=== PATIENT | female | born 1930 | race Caucasian/White ===

== ENCOUNTER 2018-03-06 01:54 | Inpatient (IN) | payer MEDICARE, OTHER ==
[2018-03-06] MEDS ORDERED: Acetaminophen 325 MG Tab PO ONE (02:06)
--- NOTE | 2018-03-06 02:06 | EDM.PDOC ---
ED HPI GENERAL MEDICAL PROBLEM - General Chief Complaint: General Stated Complaint: IN BY AMBULANCE-FEVER, NOT FEELING WELL Time Seen by Provider: 03/06/18 02:03 Source of Information: Reports: Patient, EMS History Limitations: Reports: No Limitations - History of Present Illness INITIAL COMMENTS - FREE TEXT/NARRATIVE: EMS state pt c/o weak unable get up to bathroom been sick since with vomiting F/C. - Related Data Allergies Allergy/AdvReac Type Severity Reaction Status Date / Time No Known Allergies Allergy Verified 03/06/18 02:51 ED ROS GENERAL - Review of Systems Review Of Systems: ROS reveals no pertinent complaints other than HPI. ED EXAM, GENERAL - Physical Exam Exam: See Below Exam Limited By: No Limitations General Appearance: Alert, WD/WN, Mild Distress, Other (discomfort) Ears: Hearing Grossly Normal Throat/Mouth: Normal Voice, No Airway Compromise Head: Atraumatic Neck: Non-Tender, Full Range of Motion Respiratory/Chest: No Respiratory Distress, No Accessory Muscle Use, Rales, Rhonchi Cardiovascular: Regular Rate, Rhythm GI/Abdominal: Soft, Non-Tender Neurological: Alert, Oriented, Normal Cognition, No Motor/Sensory Deficits Psychiatric: Flat Affect Skin Exam: Warm, Dry, Normal Color Lymphatic: No Adenopathy Course - Vital Signs Last Recorded V/S: Last Vital Signs Temp 38.6 C H 03/06/18 01:59 Pulse 81 03/06/18 01:59 Resp 20 03/06/18 01:59 BP 151/69 H 03/06/18 01:59 Pulse Ox 95 03/06/18 01:59 - Orders/Labs/Meds Orders: Active Orders 24 hr Category Date Time Status EKG 12 Lead [EKG Documentation Completion] [RC] URGENT Care 03/06/18 02:09 Active Chest 1V Frontal [CR] Urgent Exams 03/06/18 02:04 Taken CULTURE BLOOD [BC] Stat Lab 03/06/18 02:05 Received Labs: Laboratory Tests 03/06/18 03/06/18 03/06/18 Range/Units 02:05 02:05 02:05 WBC 12.4 H (5.0-10.0) 10^3/uL RBC 4.66 (4.2-5.4) 10^6/uL Hgb 13.3 (12.0-16.0) g/dL Hct 39.2 (37.0-47.0) % MCV 84.1 (80-100) fL MCH 28.5 (27.0-34.0) pg MCHC 33.9 (33.0-35.0) g/dL Plt Count 204 (150-450) 10^3/uL Neut % (Auto) 80.0 H (42.2-75.2) % Lymph % (Auto) 12.5 L (20.5-50.1) % Edmunds % (Auto) 7.4 (2-8) % Eos % (Auto) 0.1 L (1.0-3.0) % Baso % (Auto) 0.0 (0.0-1.0) % Add Manual Diff Yes Neutrophils % (Manual) 84 H (42-75) % Lymphocytes % (Manual) 10 L (20-50) % Monocytes % (Manual) 6 (2-8) % Sodium 124 L (135-145) mmol/L Potassium 3.9 (3.6-5.0) mmol/L Chloride 91 L (101-111) mmol/L Carbon Dioxide 23.0 (21.0-31.0) mmol/L Anion Gap 13.9 BUN 21 H (7-18) mg/dL Creatinine 1.0 (0.6-1.3) mg/dL Est Cr Clr Drug Dosing 37.10 mL/min Estimated GFR (MDRD) 52 BUN/Creatinine Ratio 21.00 Glucose 162 H (74-105) mg/dL Lactic Acid 1.3 (0.5-2.2) mmol/L Calcium 8.5 (8.4-10.2) mg/dl Total Bilirubin 1.0 (0.2-1.0) mg/dL AST 28 (10-42) IU/L ALT 21 (10-60) IU/L Alkaline Phosphatase 56 (42-121) IU/L Total Protein 6.9 (6.7-8.2) g/dl Albumin 3.6 (3.2-5.5) g/dl Globulin 3.3 Albumin/Globulin Ratio 1.09 Meds: Medications Discontinued Medications Generic Name Dose Route Start Last Admin Trade Name Freq PRN Reason Stop Dose Admin Acetaminophen 325 mg 03/06/18 02:06 03/06/18 02:14 Tylenol PO 03/06/18 02:07 325 mg NOW ONE Administration - Re-Assessments/Exams Free Text/Narrative Re-Assessment/Exam: 03/06/18 02:[address] Akers who kindly admitted pt. Departure - Departure Time of Disposition: 02:58 Disposition: Admitted As Inpatient 66 Condition: Fair Clinical Impression: Pneumonia, Hyponatremia - Discharge Information Forms: ED Department Discharge - My Orders Last 24 Hours: My Active Orders 03/06/18 02:04 Chest 1V Frontal [CR] Urgent 03/06/18 02:05 CULTURE BLOOD [BC] Stat 03/06/18 02:09 EKG 12 Lead [EKG Documentation Completion] [RC] URGENT - Assessment/Plan Last 24 Hours: My Active Orders 03/06/18 02:04 Chest 1V Frontal [CR] Urgent 03/06/18 02:05 CULTURE BLOOD [BC] Stat 03/06/18 02:09 EKG 12 Lead [EKG Documentation Completion] [RC] URGENT
[2018-03-06 02:38] LABS: ANION GAP 13.9
[2018-03-06] MEDS ORDERED: Acetaminophen/oxyCODONE 325-5 MG Tab PO PRN (03:40)
[2018-03-06] MEDS ORDERED: Azithromycin 500 MG in Sodium Chloride 0.9% 250 ML IV SCH (04:00)
--- NOTE | 2018-03-06 04:04 | HP ---
CHIEF COMPLAINT: Fever and generalized weakness. HISTORY OF PRESENT ILLNESS: The patient is an 87-year-old lady, who was brought in by ambulance to the emergency room because the patient has not been feeling well and was weak and unable to get up. The patient has been sick for the last 2 to 3 days, had some vomiting and fever and chills. In the emergency room, the patient was evaluated and the patient was noted to be dehydrated and also with pneumonia and with also hyponatremia and hypochloremia and because of the above and generalized weakness, the patient was then admitted for further evaluation and management. PAST MEDICAL HISTORY: Remarkable for hypertension. Otherwise unremarkable. HOME MEDICATIONS: 1. Atenolol 25 mg daily. 2. Aspirin 81 mg daily. REVIEW OF SYSTEMS: The patient denies any diarrhea, dysuria, chest pain, orthopnea, or PND. The rest of the review of systems is negative. SOCIAL HISTORY: The patient is . Lives in the [facility]. Nonsmoker and nonalcoholic drinker. PHYSICAL EXAMINATION: General: The patient is alert and oriented, not in any acute distress. Vital Signs: Blood pressure is 151/69, pulse of 81, respirations of 20, temperature of 101.4. HEENT: Skin turgor is slightly diminished. There are pink palpebral conjunctivae. Sclerae anicteric. No JVD. No lymphadenopathy. Heart: Regular rate and rhythm. Normal S1 and S2. No gallops. No rubs. Lungs: Have faint crackles in both lower lung fatima. No significant wheezing. Abdomen: Moderately obese, but soft and nontender. Bowel sounds positive. Extremities: Negative for any calf tenderness or any significant pedal edema. LABORATORY DATA: Lab workup: CBC; WBC is 12.4, hemoglobin is 13.3, hematocrit is 39.2, platelets 204, and neutrophils is 84%. Comprehensive panel; sodium is 124, chloride of 91, BUN of 21, glucose is 162. The rest of the panel unremarkable. Chest x-ray, there is some faint opacity noted on the right lower lung field, this is my reading. ADMITTING DIAGNOSES: 1. Systemic inflammatory response syndrome. 2. Pneumonia. 3. Generalized weakness. 4. Hyponatremia. 5. Hypochloremia. 6. Hypertension. TREATMENT PLAN: The patient is going to be admitted to General Medicine floor. She will be empirically started on IV antibiotics and IV fluids, and rest of the management as necessary. The patient is a full code. [facility] /[id number]
[2018-03-06] MEDS ORDERED: Azithromycin 500 MG in Sodium Chloride 0.9% 250 ML IV ONE (04:30)
[2018-03-06] MEDS: Sodium Chloride 0.9% 1,000 ML IV SCH ×3 (04:43→23:56)
[2018-03-06] MEDS: Atenolol 25 MG Tab PO SCH (08:12)
[2018-03-06] MEDS: Enoxaparin 40 MG/0.4 ML Syringe SUBCUT SCH (08:13)
[2018-03-06] MEDS: Aspirin 81 MG Tab.Chew PO SCH (08:13)
[2018-03-06 10:25] LABS: ANION GAP 13.6; CHLORIDE,CL 94 mmol/L (101-111); SODIUM,NA 125 mmol/L (135-145)
--- NOTE | 2018-03-06 10:47 | PN ---
DATE: 03/06/2018 SUBJECTIVE: The patient this morning is feeling slightly better and appetite is slowly picking up, but she is still feeling weak, but she denies any chest pain, shortness of breath, abdominal pain, or any other complaints. OBJECTIVE: Vital Signs: Blood pressure is 124/42, pulse of 72, respirations 20, and saturation is 95% on room air. Heart: Regular rate and rhythm. No gallops. No rubs. Lungs: Equal bilaterally. There are some faint crackles on the right lung base, but no significant wheezing. Breath sounds equal. Abdomen: Moderately obese. Otherwise soft, nontender. Bowel sounds positive. Extremities: Negative for any significant pedal edema. No calf tenderness. MEDICATIONS: Reviewed. PLAN: We will continue with her present management and continue with IV fluids and IV antibiotics. We will recheck CBC and basic metabolic panel in a.m. [facility] /[id number]
[2018-03-06] MEDS: Ondansetron 4 MG Tab.DIS PO PRN (12:14)
[2018-03-06] MEDS: Acetaminophen 325 MG Tab PO PRN ×2 (15:35→20:48)
[2018-03-06] MEDS ORDERED: Ibuprofen 200 MG Tab PO PRN (18:07)
[2018-03-06] MEDS: Azithromycin 500 MG in Sodium Chloride 0.9% 250 ML IV SCH (20:48)
[2018-03-07 07:10] LABS: ANION GAP 11.8; CHLORIDE,CL 97 mmol/L (101-111); SODIUM,NA 127 mmol/L (135-145)
[2018-03-07] MEDS: Sodium Chloride 0.9% 1,000 ML IV SCH ×2 (08:29→17:38)
[2018-03-07] MEDS: Aspirin 81 MG Tab.Chew PO SCH (08:50)
[2018-03-07] MEDS: Atenolol 25 MG Tab PO SCH (08:51)
[2018-03-07] MEDS: Enoxaparin 40 MG/0.4 ML Syringe SUBCUT SCH (08:51)
[2018-03-07] MEDS ORDERED: Iopamidol 612 MG/ML 50 ML SDV IVPUSH ONE (09:34)
[2018-03-07] MEDS: Acetaminophen 325 MG Tab PO PRN ×2 (12:09→20:24)
--- NOTE | 2018-03-07 14:48 | CT ---
CLINICAL HISTORY: 87-year-old 170 pound hypertensive female with left-sided weakness. No previous hea d exam (CT or MRI) at this institution. No known trauma. SCAN TECHNIQUE: Volume acquisition of data from the head and brain obtained initially without and sub sequently during/after the intravenous infusion (50 cc nonionic Isovue contrast) while the patient wa s lying supine on the Siemens multislice scanner [place], [place]. All data archived in the PACS system for storage, reformatting and study. INTERPRETATION: Abnormal. 1. Multiple scattered areas of decreased attenuation (ischemic infarcts) involving the periventricul ar white matter of both cerebral hemispheres. 2. Mirror-image normal ventricular system, i.e., no hydrocephalus. Physiologic midline pineal and sym metric choroid plexus Ca++. 3. Solitary 2 cm diameter intracranial mass lesion, right of midline, that arises from the falx with characteristic enhancement of meningioma, i.e., florid initial arterial phase enhancement with exuber ant delayed tumor "blush". 4. Age-appropriate atrophy. No extracerebral/intracranial epidural or subdural hematoma. 5. Uniformly thick bony calvarium and symmetric clear pneumatization of the mastoid/paranasal sinuses . 6. No sign of acute intracerebral/intraventricular/subarachnoid bleed. 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
[2018-03-07] MEDS: Docusate Sodium 100 MG Cap PO SCH (18:53)
[2018-03-07] MEDS: Azithromycin 500 MG in Sodium Chloride 0.9% 250 ML IV SCH (20:57)
[2018-03-08] MEDS: Sodium Chloride 0.9% 1,000 ML IV SCH ×2 (02:41→12:05)
[2018-03-08] MEDS: Acetaminophen 325 MG Tab PO PRN ×2 (04:06→16:59)
[2018-03-08 07:01] LABS: ANION GAP 9.3; CHLORIDE,CL 100 mmol/L (101-111); SODIUM,NA 126 mmol/L (135-145)
[2018-03-08] MEDS: Atenolol 25 MG Tab PO SCH (08:22)
[2018-03-08] MEDS: Docusate Sodium 100 MG Cap PO SCH (08:22)
[2018-03-08] MEDS: Enoxaparin 40 MG/0.4 ML Syringe SUBCUT SCH (08:24)
[2018-03-08] MEDS: Aspirin 81 MG Tab.Chew PO SCH (08:24)
[2018-03-08] MEDS: Sodium Chloride 0.9% 10 ML Syringe FLUSH SCH (08:25)
--- NOTE | 2018-03-08 09:01 | PN ---
DATE: 03/07/2018 SUBJECTIVE: Ms. Diego is an 87-year-old female seen during her continued hospital stay; admitted because of weakness; was noted to have hyponatremia, leukocytosis, and fever. The patient on her subsequent day continues to have episodes of fever despite started on IV azithromycin and ceftriaxone. Her sodium has improved. It was later on reported to the staff that she has been having some left-sided weakness for 1 week. She is getting a CAT scan today. PHYSICAL EXAMINATION: Vital Signs: Temperature 101.3, blood pressure is 135/50, heart rate of 73 beats per minute, respirations 20 breaths per minute, and oxygen saturation 94%. General Appearance: Sleeping but arousable. Chest: Symmetric chest expansion. Lungs: Bilateral air entry. Cardiovascular System: Regular rate and rhythm. Abdomen: Soft and nontender. ASSESSMENT AND PLAN: Await CAT scan results. Continue with Tylenol and ibuprofen for episodes of fever. We will continue to follow WBC. Microbiologic studies so far is nonrevealing. We will continue with current IV antibiotics. Once the patient is better, we will have her work with Physical Therapy. PROGNOSIS: Guarded. [facility] /[id number]
--- NOTE | 2018-03-08 09:34 | PN ---
DATE: 03/07/2018 SUBJECTIVE: The patient was seen on her subsequent hospital stay. CAT scan showed meningioma. doesn't want her to know for now until she gets stronger. Patient was able to work with physical therapy today. Feels tired all the time, Appetite still not the best, Ensure was added yesterday and reports was she was able to finish this. PHYSICAL EXAMINATION: Vital Signs: Blood pressure 135/50, heart rate of 73 beats per minute, temperature 101.3, oxygen 94%. General Appearance: Awake. Chest: Symmetric chest expansion. Lungs: Bilateral air entry. Cardiovascular: Regular rate and rhythm. Abdomen: Soft, nontender. Extremities: No edema. Good pulses. neUrologic: Drowsy but arousable and answers questions appropriately ASSESSMENT AND PLAN: Physical therapy and all the patient will therapy will continue to work with her. Her temperatures are starting to trend down now. She will continue with her IV antibiotics. And her leukocytosis has improved. She will also continue with her incentive spirometry. For the hyponatremia, we will start doing fluid restriction, normal saline cutdown to 75 mL per hour and repeat BMP. Hypokalemia, replace and recheck potassium. Anemia, no signs of bleeding. Likely dilutional. ADDENDUM: patient continues to spike fever later today. plan is to switch antibiotics and do CT scan chest, abdomen and pelvis. Daughter Luann updated with plan as well. [facility] /[id number] MTDD
[2018-03-08] MEDS ORDERED: Potassium Chloride 10 MEQ Tab.ER PO ONE (17:28)
[2018-03-08] MEDS ORDERED: Piperacillin/Tazobactam 4.5 GM in Sodium Chloride 0.9% 50 ML IV SCH ×2 (19:00→20:02)
[2018-03-08] MEDS ORDERED: Piperacillin/Tazobactam 4.5 GM in Sodium Chloride 0.9% 100 ML IV SCH ×4 (20:00)
[2018-03-08] MEDS: Piperacillin/Tazobactam 4.5 GM in Sodium Chloride 0.9% 100 ML IV SCH (20:39)
[2018-03-08] MEDS: Sodium Chloride 1 GM Tab PO SCH (20:51)
[2018-03-09] MEDS: Sodium Chloride 0.9% 1,000 ML IV SCH (01:42)
[2018-03-09] MEDS: Piperacillin/Tazobactam 4.5 GM in Sodium Chloride 0.9% 100 ML IV SCH ×6 (02:18→22:41)
[2018-03-09 07:11] LABS: CHLORIDE,CL 99 mmol/L (101-111); SODIUM,NA 126 mmol/L (135-145)
[2018-03-09] MEDS ORDERED: Iopamidol 612 MG/ML 100 ML Bottle IVPUSH ONE (08:37)
--- NOTE | 2018-03-09 11:24 | CT ---
CLINICAL HISTORY: 87-year-old 171 pound hypertensive female with fever of unknown origin (FUO). SCAN TECHNIQUE: Volume acquisition of data from the chest, abdomen and pelvis obtained without oral c ontrast but during/after the intravenous infusion 100 cc nonionic Isovue contrast (3 cc/s via injecto r) while the patient was lying supine on the Siemens multislice scanner [place], [place]. All data archived in the PAC system for storage, reformatting axial/sagittal/lisa nal planes and study. Respiratory motion artifact present. INTERPRETATION: Abnormal. 1. Borderline cardiomegaly and although no cephalization of flow or signs of alveolar edema there are bibasilar dependent pleural effusions (R > L) with underlying lower lobe atelectasis or infiltrates. 2. Abnormally thickened wall of the gallbladder suggesting inflammation but no pericystic fluid or ga llstones (chronic cholecystitis). 3. No pericardial effusion, lung mass, hilar/mediastinal lymphadenopathy or other focal lobar consoli dation. 4. Solitary tiny 7 mm diameter cyst laterally right lobe of the liver and bilateral perihilar renal c ysts. No abnormal dilatation intrahepatic biliary ducts or inflammatory changes cortex of either kidn eys. No nephrolithiasis or obstructive uropathy. Indwelling bladder catheter. 5. Normal caliber aortoiliac vessels. No aneurysm or dissection. Chronic hypertrophic arthritic kaplan es spine. No abscess, fracture or dislocation. No pathologic skeletal lesion. 6. Stomach, spleen, pancreas and adrenal glands unremarkable. Diverticula rectosigmoid colon without associated inflammation. 7. No sign of pelvic or abdominal mass lesion, mesenteric/retroperitoneal lymphadenopathy, mechanical bowel obstruction, ascites or free intraperitoneal air. CONCLUSION: Bibasilar pleural effusions with underlying lower lobe atelectasis/infiltrates. Chronic c holecystitis. Diverticulosis. Hepatic and renal cysts. Usual signs of senescence but no sign of acute peritonitis.
[2018-03-09] MEDS: Aspirin 81 MG Tab.Chew PO SCH (11:34)
[2018-03-09] MEDS: Atenolol 25 MG Tab PO SCH (11:34)
[2018-03-09] MEDS: Enoxaparin 40 MG/0.4 ML Syringe SUBCUT SCH (11:35)
[2018-03-09] MEDS: Docusate Sodium 100 MG Cap PO SCH (11:35)
[2018-03-09] MEDS: Sodium Chloride 0.9% 10 ML Syringe FLUSH SCH (11:36)
[2018-03-09] MEDS: Sodium Chloride 1 GM Tab PO SCH (11:42)
--- NOTE | 2018-03-09 12:08 | PCM.PN ---
- General Info Date of Service: 03/09/18 Functional Status: Reports: Other (history is limited because of the patient's level of orientation.) - Review of Systems General: Reports: No Symptoms, Fever, Weakness, Fatigue Pulmonary: Reports: Shortness of Breath - Patient Data Vitals - Most Recent: Last Vital Signs Temp 37.4 C 03/09/18 11:24 Pulse 70 03/09/18 11:34 Resp 20 03/09/18 11:24 BP 130/77 03/09/18 11:34 Pulse Ox 96 03/09/18 11:24 Weight - Most Recent: 77.927 kg I&O - Last 24 Hours: Intake & Output 03/08/18 03/09/18 03/09/18 22:59 06:59 14:59 Intake Total 200 1437 Output Total 1450 Balance 200 -13 Lab Results Last 24 Hours: Laboratory Results - last 24 hr 03/09/18 03/09/18 03/09/18 Range/Units 06:15 06:15 06:15 WBC 9.9 (5.0-10.0) 10^3/uL RBC 3.74 L (4.2-5.4) 10^6/uL Hgb 10.8 L (12.0-16.0) g/dL Hct 31.6 L (37.0-47.0) % MCV 84.5 (80-100) fL MCH 28.9 (27.0-34.0) pg MCHC 34.2 (33.0-35.0) g/dL Plt Count 143 L (150-450) 10^3/uL Sodium 126 L (135-145) mmol/L Potassium 3.0 L (3.6-5.0) mmol/L Chloride 99 L (101-111) mmol/L Carbon Dioxide 21.0 (21.0-31.0) mmol/L Anion Gap 9.0 BUN 8 (7-18) mg/dL Creatinine 0.6 (0.6-1.3) mg/dL Est Cr Clr Drug Dosing 61.84 mL/min Estimated GFR (MDRD) > 60 Glucose 101 (74-105) mg/dL Calcium 7.4 L (8.4-10.2) mg/dl B-Natriuretic Peptide 640 H (0-100) pg/ml Isai Results Last 24 Hours: Microbiology 03/06/18 02:05 Aerobic Blood Culture - Preliminary Blood NO GROWTH AFTER 3 DAYS Anaerobic Blood Culture - Preliminary NO GROWTH AFTER 3 DAYS Med Orders - Current: Current Medications Acetaminophen (Tylenol) 650 mg PO Q4H PRN PRN Reason: Pain (Mild 1-3)/fever Last Admin: 03/08/18 16:59 Dose: 650 mg Aspirin (Aspirin) 81 mg PO DAILY [facility] Last Admin: 03/09/18 11:34 Dose: 81 mg Atenolol (Tenormin) 25 mg PO DAILY [facility] Last Admin: 03/09/18 11:34 Dose: 25 mg Docusate Sodium (Colace) 100 mg PO DAILY [facility] Last Admin: 03/09/18 11:35 Dose: Not Given Enoxaparin Sodium (Lovenox) 40 mg SUBCUT DAILY [facility] Last Admin: 03/09/18 11:35 Dose: 40 mg Sodium Chloride (Normal Saline) 1,000 mls @ 75 mls/hr IV ASDIRECTED [facility] Last Admin: 03/09/18 01:42 Dose: 75 mls/hr Piperacillin Sod/Tazobactam (Sod 4.5 gm/ Sodium Chloride) 100 mls @ 100 mls/hr IV Q6H [facility] Last Admin: 03/09/18 08:53 Dose: 100 mls/hr Ibuprofen (Motrin) 200 mg PO TID PRN PRN Reason: Pain/Fever Last Admin: 03/07/18 01:23 Dose: 200 mg Ondansetron HCl (Zofran Odt) 4 mg PO Q4H PRN PRN Reason: nausea, able to take PO Last Admin: 03/06/18 12:14 Dose: 4 mg Oxycodone/Acetaminophen (Percocet 325-5 Mg) 1 tab PO Q4H PRN PRN Reason: Pain (moderate 4-6) Sodium Chloride (Saline Flush) 10 ml FLUSH ASDIRECTED PRN PRN Reason: Keep Vein Open Sodium Chloride (Saline Flush) 10 ml FLUSH DAILY [facility] Last Admin: 03/09/18 11:36 Dose: Not Given Sodium Chloride (Sodium Chloride) 1 gm PO DAILY [facility] Last Admin: 03/09/18 11:42 Dose: 1 gm Discontinued Medications Acetaminophen (Tylenol) 325 mg PO NOW ONE Stop: 03/06/18 02:07 Last Admin: 03/06/18 02:14 Dose: 325 mg Ceftriaxone Sodium 1,000 mg/ (Sodium Chloride) 100 mls @ 200 mls/hr IV Q24H [facility] Last Admin: 03/08/18 04:00 Dose: 200 mls/hr Azithromycin 500 mg/ Sodium (Chloride) 250 mls @ 250 mls/hr IV ONETIME ONE Stop: 03/06/18 05:29 Last Admin: 03/06/18 04:43 Dose: 250 mls/hr Azithromycin 500 mg/ Sodium (Chloride) 250 mls @ 250 mls/hr IV Q24H [facility] Last Admin: 03/07/18 20:57 Dose: 250 mls/hr Piperacillin Sod/Tazobactam (Sod 4.5 gm/ Sodium Chloride) 50 mls @ 100 mls/hr IV Q6H [facility] Last Admin: 03/08/18 20:30 Dose: Not Given Piperacillin Sod/Tazobactam (Sod 4.5 gm/ Sodium Chloride) 100 mls @ 200 mls/hr IV Q6H [facility] Piperacillin Sod/Tazobactam (Sod 4.5 gm/ Sodium Chloride) 100 mls @ 200 mls/hr IV Q6H [facility] Last Admin: 03/08/18 20:31 Dose: Not Given Piperacillin Sod/Tazobactam (Sod 4.5 gm/ Sodium Chloride) 50 mls @ 100 mls/hr IV Q6H [facility] Last Admin: 03/08/18 20:31 Dose: Not Given Piperacillin Sod/Tazobactam (Sod 4.5 gm/ Sodium Chloride) 100 mls @ 100 mls/hr IV Q6H [facility] Last Admin: 03/09/18 10:49 Dose: Not Given Iopamidol (Isovue-300 (61%)) 50 ml IVPUSH ONETIME ONE Stop: 03/07/18 09:35 Last Admin: 03/07/18 09:43 Dose: 50 ml Iopamidol (Isovue-300 (61%)) 100 ml IVPUSH ONETIME ONE Stop: 03/09/18 08:38 Last Admin: 03/09/18 09:41 Dose: 100 ml Potassium Chloride (Klor-Con 10) 20 meq PO ONETIME ONE Stop: 03/08/18 17:29 Last Admin: 03/08/18 17:42 Dose: 20 meq - Exam General: Other (disoriented. Confused) Neck: Supple Lungs: Decreased Breath Sounds GI/Abdominal Exam: Normal Bowel Sounds Extremities: Non-Tender Psy/Mental Status: Depressed - Problem List Review Problem List Initiated/Reviewed/Updated: Yes - Plan Plan:: the patient is an 87-year-old female with medical history of hypertension was admitted 5 the emergency room with complaint of generalized weakness and inability to get up. She hasn't intermittent fever chills I will did have some vomiting. She was thought to be dehydrated and also to have pneumonia.she was noted to be hyponatremic. Assessment/plan #. Hyponatremia I suspect that the patient is fluid overloaded at this point. I send sample for BNP and he came back elevated at more than 600. CT scan of the chest was obtained this morning and it showed bilateral pleural effusion Patient has been on intravenous fluid. This will be stopped Discontinue intravenous fluid Start patient on intravenous Lasix 20 mg every 12 hours Obtain repeat basic metabolic panel to monitor serum sodium level #. Possible pneumonia CT scan demonstrated possible bilateral lower lobe infiltrate Patient did have fever initially and also had elevated white cell count. Has been on intravenous antibiotics #. Possible chronic cholecystitis CT scan suggested chronic cholecystitis However patient is not having pain at this point. I would treat this empirically with intravenous antibiotics. The family is not keen on proceeding with surgery at this point #. Possible sepsis At presentation the patient appeared to be septic with elevated white cell count and fever. This could be from pneumonia. Could also be from cholecystitis #. Probable meningioma CT scan of the head showed a 2 cm intracranial mass likely due to meningioma. This is likely responsible for the patient's symptoms #. Acute encephalopathy Probably multifactorial including infection and hyponatremia #. Hypertension blood pressure has been mostly within acceptable limits
[2018-03-09] MEDS: Furosemide 20 MG/2 ML VIAL IVPUSH SCH (14:22)
[2018-03-09] MEDS ORDERED: Carboxymethylcellulose Sodium 1% Ophth Gel 0.4 ML UD EYEBOTH PRN (16:05)
[2018-03-09] MEDS: Acetaminophen 325 MG Tab PO PRN (22:41)
[2018-03-10] MEDS: Piperacillin/Tazobactam 4.5 GM in Sodium Chloride 0.9% 100 ML IV SCH ×4 (03:27→17:20)
[2018-03-10 07:11] LABS: ANION GAP 8.7; CHLORIDE,CL 98 mmol/L (101-111); SODIUM,NA 129 mmol/L (135-145)
[2018-03-10] MEDS: Atenolol 25 MG Tab PO SCH (08:53)
[2018-03-10] MEDS: Sodium Chloride 1 GM Tab PO SCH ×3 (08:53→20:22)
[2018-03-10] MEDS: Aspirin 81 MG Tab.Chew PO SCH (08:53)
[2018-03-10] MEDS: Furosemide 20 MG/2 ML VIAL IVPUSH SCH ×2 (08:58→13:43)
[2018-03-10] MEDS: Enoxaparin 40 MG/0.4 ML Syringe SUBCUT SCH (08:58)
[2018-03-10] MEDS: Docusate Sodium 100 MG Cap PO SCH (11:30)
[2018-03-10] MEDS: Sodium Chloride 0.9% 10 ML Syringe FLUSH SCH (11:30)
[2018-03-10] MEDS: Potassium Chloride 20 MEQ in Premix Bag 1 BAG IV SCH ×2 (11:39→13:40)
--- NOTE | 2018-03-10 11:42 | PCM.PN ---
- General Info Date of Service: 03/10/18 Admission Dx/Problem (Free Text): Generalized weakness Subjective Update: Seen on rounds. Patient AAO x 3. Following commands. Worried about her weakness and wants to know when she will feel better. She si coping with therapy. Denies any new complaints. LAb review; Na today 129>>126. Phos 2.3, K 2.7. Functional Status: Reports: Pain Controlled - Review of Systems General: Reports: No Symptoms HEENT: Reports: No Symptoms Pulmonary: Reports: No Symptoms Cardiovascular: Reports: No Symptoms Gastrointestinal: Reports: No Symptoms, Decreased Appetite Genitourinary: Reports: No Symptoms Musculoskeletal: Reports: Other (general malaise) Skin: Reports: No Symptoms Neurological: Reports: Difficulty Walking, Weakness, Other (instability) Psychiatric: Reports: No Symptoms - Patient Data Vitals - Most Recent: Last Vital Signs Temp 97.8 F 03/10/18 08:20 Pulse 68 03/10/18 08:53 Resp 20 03/10/18 08:20 BP 145/55 H 03/10/18 08:53 Pulse Ox 96 03/10/18 08:20 Weight - Most Recent: 171 lb 12.8 oz I&O - Last 24 Hours: Intake & Output 03/09/18 03/10/18 03/10/18 22:59 06:59 14:59 Intake Total 1740 Output Total 1300 1400 Balance 440 -1400 Lab Results Last 24 Hours: Laboratory Results - last 24 hr 03/10/18 03/10/18 Range/Units 06:15 06:15 Sodium 129 L (135-145) mmol/L Potassium 2.7 L (3.6-5.0) mmol/L Chloride 98 L (101-111) mmol/L Carbon Dioxide 25.0 (21.0-31.0) mmol/L Anion Gap 8.7 BUN 7 (7-18) mg/dL Creatinine 0.7 (0.6-1.3) mg/dL Est Cr Clr Drug Dosing 53.01 mL/min Estimated GFR (MDRD) > 60 Glucose 102 (74-105) mg/dL Calcium 7.6 L (8.4-10.2) mg/dl Phosphorus 2.3 L (2.5-4.6) mg/dL Magnesium 1.8 (1.8-2.5) mg/dL Isai Results Last 24 Hours: Microbiology 03/06/18 02:05 Aerobic Blood Culture - Preliminary Blood NO GROWTH AFTER 4 DAYS Anaerobic Blood Culture - Preliminary NO GROWTH AFTER 4 DAYS Med Orders - Current: Current Medications Acetaminophen (Tylenol) 650 mg PO Q4H PRN PRN Reason: Pain (Mild 1-3)/fever Last Admin: 03/09/18 22:41 Dose: 650 mg Artificial Tears (Refresh Celluvisc) 0 each EYEBOTH ASDIRECTED PRN PRN Reason: Dry Eyes Aspirin (Aspirin) 81 mg PO DAILY [facility] Last Admin: 03/10/18 08:53 Dose: 81 mg Atenolol (Tenormin) 25 mg PO DAILY [facility] Last Admin: 03/10/18 08:53 Dose: 25 mg Docusate Sodium (Colace) 100 mg PO DAILY [facility] Last Admin: 03/10/18 11:30 Dose: Not Given Enoxaparin Sodium (Lovenox) 40 mg SUBCUT DAILY [facility] Last Admin: 03/10/18 08:58 Dose: 40 mg Furosemide (Lasix) 20 mg IVPUSH BIDDIURETIC [facility] Last Admin: 03/10/18 08:58 Dose: 20 mg Piperacillin Sod/Tazobactam (Sod 4.5 gm/ Sodium Chloride) 100 mls @ 100 mls/hr IV Q6H [facility] Last Admin: 03/10/18 08:58 Dose: 100 mls/hr Potassium Chloride 20 meq/ (Premix) 100 mls @ 50 mls/hr IV Q2H [facility] Stop: 03/10/18 13:59 Ibuprofen (Motrin) 200 mg PO TID PRN PRN Reason: Pain/Fever Last Admin: 03/07/18 01:23 Dose: 200 mg Ondansetron HCl (Zofran Odt) 4 mg PO Q4H PRN PRN Reason: nausea, able to take PO Last Admin: 03/06/18 12:14 Dose: 4 mg Oxycodone/Acetaminophen (Percocet 325-5 Mg) 1 tab PO Q4H PRN PRN Reason: Pain (moderate 4-6) Sodium Chloride (Saline Flush) 10 ml FLUSH ASDIRECTED PRN PRN Reason: Keep Vein Open Sodium Chloride (Saline Flush) 10 ml FLUSH DAILY [facility] Last Admin: 03/10/18 11:30 Dose: Not Given Sodium Chloride (Sodium Chloride) 1 gm PO TID [facility] Discontinued Medications Acetaminophen (Tylenol) 325 mg PO NOW ONE Stop: 03/06/18 02:07 Last Admin: 03/06/18 02:14 Dose: 325 mg Sodium Chloride (Normal Saline) 1,000 mls @ 75 mls/hr IV ASDIRECTED [facility] Last Infusion: 03/10/18 07:14 Dose: Infused Ceftriaxone Sodium 1,000 mg/ (Sodium Chloride) 100 mls @ 200 mls/hr IV Q24H [facility] Last Admin: 03/08/18 04:00 Dose: 200 mls/hr Azithromycin 500 mg/ Sodium (Chloride) 250 mls @ 250 mls/hr IV ONETIME ONE Stop: 03/06/18 05:29 Last Admin: 03/06/18 04:43 Dose: 250 mls/hr Azithromycin 500 mg/ Sodium (Chloride) 250 mls @ 250 mls/hr IV Q24H [facility] Last Admin: 03/07/18 20:57 Dose: 250 mls/hr Piperacillin Sod/Tazobactam (Sod 4.5 gm/ Sodium Chloride) 50 mls @ 100 mls/hr IV Q6H [facility] Last Admin: 03/08/18 20:30 Dose: Not Given Piperacillin Sod/Tazobactam (Sod 4.5 gm/ Sodium Chloride) 100 mls @ 200 mls/hr IV Q6H [facility] Piperacillin Sod/Tazobactam (Sod 4.5 gm/ Sodium Chloride) 100 mls @ 200 mls/hr IV Q6H [facility] Last Admin: 03/08/18 20:31 Dose: Not Given Piperacillin Sod/Tazobactam (Sod 4.5 gm/ Sodium Chloride) 50 mls @ 100 mls/hr IV Q6H [facility] Last Admin: 03/08/18 20:31 Dose: Not Given Piperacillin Sod/Tazobactam (Sod 4.5 gm/ Sodium Chloride) 100 mls @ 100 mls/hr IV Q6H [facility] Last Admin: 03/09/18 10:49 Dose: Not Given Piperacillin Sod/Tazobactam (Sod 4.5 gm/ Sodium Chloride) 100 mls @ 100 mls/hr IV Q6H [facility] Last Admin: 03/09/18 15:42 Dose: Not Given Iopamidol (Isovue-300 (61%)) 50 ml IVPUSH ONETIME ONE Stop: 03/07/18 09:35 Last Admin: 03/07/18 09:43 Dose: 50 ml Iopamidol (Isovue-300 (61%)) 100 ml IVPUSH ONETIME ONE Stop: 03/09/18 08:38 Last Admin: 03/09/18 09:41 Dose: 100 ml Potassium Chloride (Klor-Con 10) 20 meq PO ONETIME ONE Stop: 03/08/18 17:29 Last Admin: 03/08/18 17:42 Dose: 20 meq Sodium Chloride (Sodium Chloride) 1 gm PO DAILY [facility] Last Admin: 03/10/18 08:53 Dose: 1 gm - Exam Quality Assessment: DVT Prophylaxis General: Alert, Oriented, Cooperative HEENT: Pupils Equal, Pupils Reactive, EOMI, Mucous Membr. Moist/[place] Neck: Supple Lungs: Clear to Auscultation, Normal Respiratory Effort Cardiovascular: Regular Rate, Regular Rhythm GI/Abdominal Exam: Normal Bowel Sounds, Soft, Non-Tender, No Organomegaly, No Distention, No Abnormal Bruit, No Mass, Pelvis Stable (Female) Exam: Normal External Exam, Normal Speculum Exam, Normal Bimanual Exam Back Exam: Normal Inspection, Full Range of Motion Extremities: Normal Inspection, Normal Range of Motion, Non-Tender, No Pedal Edema, Normal Capillary Refill Skin: Warm, Dry, Intact Wound/Incisions: Healing Well Neurological: No New Focal Deficit, Other (unstable balance) Psy/Mental Status: Alert, Normal Affect, Normal Mood - Problem List & Annotations (1) Weakness generalized SNOMED Code(s): 18671080 Code(s): R53.1 - WEAKNESS Status: Acute Current Visit: Yes (2) Unstable balance SNOMED Code(s): 772632763 Code(s): R26.89 - OTHER ABNORMALITIES OF GAIT AND MOBILITY Status: Acute Current Visit: Yes - Problem List Review Problem List Initiated/Reviewed/Updated: Yes - My Orders Last 24 Hours: My Active Orders 03/10/18 10:00 Potassium Chloride [KCL 20 MEQ in Water 100 ML] 20 meq Premix Bag 1 bag IV Q2H 03/10/18 14:00 Sodium Chloride 1 gm PO TID - Plan Plan:: Patient is an 87-year-old female with medical history of hypertension who presented with complaint of generalized weakness and inability to get up. She was thought to be dehydrated and also to have pneumonia. She was noted to be hyponatremic. Assessment/plan #. Hyponatremia Due to hypervolemia BNP elevated at more than 600. CT scan of the chest; bilateral pleural effusion Continue Diuretics Salt tablets 1 g tid BMP daily Hypokalemia K 2.7 will replace IV Hypophosphatemia Repalce IV #. Possible pneumonia CT scan demonstrated possible bilateral lower lobe infiltrate Patient did have fever initially and also had elevated white cell count. Has been on intravenous antibiotics. Continue for now #. Possible chronic cholecystitis CT scan suggested chronic cholecystitis However patient is not having pain at this point I would treat this empirically with intravenous antibiotics. The family is not keen on proceeding with surgery at this point #. Possible sepsis At presentation the patient appeared to be septic with elevated white cell count and fever. This could be from pneumonia. Could also be from cholecystitis #. Probable meningioma CT scan of the head showed a 2 cm intracranial mass likely due to meningioma. This is likely responsible for the patient's symptoms #. Acute encephalopathy Probably multifactorial including infection and hyponatremia #. Hypertension blood pressure has been mostly within acceptable limits Generalized weakness PT/OT
[2018-03-10] MEDS: Sodium Chloride 0.9% 10 ML Syringe FLUSH PRN (16:38)
[2018-03-11] MEDS: Sodium Chloride 0.9% 10 ML Syringe FLUSH PRN ×2 (00:08→21:01)
[2018-03-11] MEDS: Piperacillin/Tazobactam 4.5 GM in Sodium Chloride 0.9% 100 ML IV SCH ×4 (00:08→21:01)
[2018-03-11 06:50] LABS: ANION GAP 11.9; CHLORIDE,CL 95 mmol/L (101-111); SODIUM,NA 130 mmol/L (135-145)
[2018-03-11] MEDS: Furosemide 20 MG/2 ML VIAL IVPUSH SCH ×2 (09:04→14:43)
[2018-03-11] MEDS: Sodium Chloride 1 GM Tab PO SCH ×3 (09:05→21:16)
[2018-03-11] MEDS: Aspirin 81 MG Tab.Chew PO SCH (09:05)
[2018-03-11] MEDS: Enoxaparin 40 MG/0.4 ML Syringe SUBCUT SCH (09:05)
[2018-03-11] MEDS: Atenolol 25 MG Tab PO SCH (09:05)
[2018-03-11] MEDS: Sodium Chloride 0.9% 10 ML Syringe FLUSH SCH (09:06)
[2018-03-11] MEDS: Docusate Sodium 100 MG Cap PO SCH (09:06)
[2018-03-11] MEDS: Ondansetron 4 MG Tab.DIS PO PRN ×2 (09:40→21:15)
--- NOTE | 2018-03-11 11:19 | PCM.PN ---
- General Info Date of Service: 03/11/18 Admission Dx/Problem (Free Text): Generalized weakness Subjective Update: Seen on rounds. Patient AAO x 3. Following commands. Says her strength is gradually improving. 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 She insist she is ok. She is coping with therapy. Denies any new complaints. Lab review; Na today 130>129. K 2.9 Functional Status: Reports: Pain Controlled - Review of Systems General: Reports: Weakness, Fatigue, Malaise, Appetite HEENT: Reports: No Symptoms Pulmonary: Reports: No Symptoms Cardiovascular: Reports: No Symptoms Gastrointestinal: Reports: No Symptoms Genitourinary: Reports: No Symptoms Musculoskeletal: Reports: No Symptoms Skin: Reports: No Symptoms Neurological: Reports: Weakness Psychiatric: Reports: No Symptoms - Patient Data Vitals - Most Recent: Last Vital Signs Temp 97 F 03/11/18 07:58 Pulse 75 03/11/18 09:05 Resp 20 03/11/18 07:58 BP 155/70 H 03/11/18 09:05 Pulse Ox 95 03/11/18 07:58 Weight - Most Recent: 171 lb 12.8 oz I&O - Last 24 Hours: Intake & Output 03/10/18 03/11/18 03/11/18 22:59 06:59 14:59 Intake Total 211 88 100 Output Total 700 700 Balance -489 -612 100 Lab Results Last 24 Hours: Laboratory Results - last 24 hr 03/11/18 03/11/18 Range/Units 05:55 05:55 WBC 11.5 H (5.0-10.0) 10^3/uL RBC 3.87 L (4.2-5.4) 10^6/uL Hgb 11.1 L (12.0-16.0) g/dL Hct 32.9 L (37.0-47.0) % MCV 85.0 (80-100) fL MCH 28.7 (27.0-34.0) pg MCHC 33.7 (33.0-35.0) g/dL Plt Count 211 (150-450) 10^3/uL Neut % (Auto) 78.2 H (42.2-75.2) % Lymph % (Auto) 11.3 L (20.5-50.1) % [place] % (Auto) 8.9 H (2-8) % Eos % (Auto) 1.4 (1.0-3.0) % Baso % (Auto) 0.2 (0.0-1.0) % Sodium 130 L (135-145) mmol/L Potassium 2.9 L (3.6-5.0) mmol/L Chloride 95 L (101-111) mmol/L Carbon Dioxide 26.0 (21.0-31.0) mmol/L Anion Gap 11.9 BUN 8 (7-18) mg/dL Creatinine 0.6 (0.6-1.3) mg/dL Est Cr Clr Drug Dosing 61.84 mL/min Estimated GFR (MDRD) > 60 Glucose 97 (74-105) mg/dL Calcium 7.9 L (8.4-10.2) mg/dl Isai Results Last 24 Hours: Microbiology 03/06/18 02:05 Aerobic Blood Culture - Final Blood NO GROWTH AFTER 5 DAYS Anaerobic Blood Culture - Final NO GROWTH AFTER 5 DAYS Med Orders - Current: Current Medications Acetaminophen (Tylenol) 650 mg PO Q4H PRN PRN Reason: Pain (Mild 1-3)/fever Last Admin: 03/09/18 22:41 Dose: 650 mg Artificial Tears (Refresh Celluvisc) 0 each EYEBOTH ASDIRECTED PRN PRN Reason: Dry Eyes Aspirin (Aspirin) 81 mg PO DAILY [facility] Last Admin: 03/11/18 09:05 Dose: 81 mg Atenolol (Tenormin) 25 mg PO DAILY [facility] Last Admin: 03/11/18 09:05 Dose: 25 mg Docusate Sodium (Colace) 100 mg PO DAILY [facility] Last Admin: 03/11/18 09:06 Dose: Not Given Enoxaparin Sodium (Lovenox) 40 mg SUBCUT DAILY [facility] Last Admin: 03/11/18 09:05 Dose: 40 mg Furosemide (Lasix) 20 mg IVPUSH BIDDIURETIC [facility] Last Admin: 03/11/18 09:04 Dose: 20 mg Piperacillin Sod/Tazobactam (Sod 4.5 gm/ Sodium Chloride) 100 mls @ 100 mls/hr IV Q6HR [facility] Last Admin: 03/11/18 06:14 Dose: 100 mls/hr Potassium Chloride 20 meq/ (Premix) 100 mls @ 50 mls/hr IV Q2H [facility] Stop: 03/11/18 13:59 Ibuprofen (Motrin) 200 mg PO TID PRN PRN Reason: Pain/Fever Last Admin: 03/07/18 01:23 Dose: 200 mg Ondansetron HCl (Zofran Odt) 4 mg PO Q4H PRN PRN Reason: nausea, able to take PO Last Admin: 03/11/18 09:40 Dose: 4 mg Oxycodone/Acetaminophen (Percocet 325-5 Mg) 1 tab PO Q4H PRN PRN Reason: Pain (moderate 4-6) Sodium Chloride (Saline Flush) 10 ml FLUSH ASDIRECTED PRN PRN Reason: Keep Vein Open Last Admin: 03/11/18 00:08 Dose: 10 ml Sodium Chloride (Saline Flush) 10 ml FLUSH DAILY [facility] Last Admin: 03/11/18 09:06 Dose: 10 ml Sodium Chloride (Sodium Chloride) 1 gm PO TID [facility] Last Admin: 03/11/18 09:05 Dose: 1 gm Discontinued Medications Acetaminophen (Tylenol) 325 mg PO NOW ONE Stop: 03/06/18 02:07 Last Admin: 03/06/18 02:14 Dose: 325 mg Sodium Chloride (Normal Saline) 1,000 mls @ 75 mls/hr IV ASDIRECTED [facility] Last Infusion: 03/10/18 07:14 Dose: Infused Ceftriaxone Sodium 1,000 mg/ (Sodium Chloride) 100 mls @ 200 mls/hr IV Q24H [facility] Last Admin: 03/08/18 04:00 Dose: 200 mls/hr Azithromycin 500 mg/ Sodium (Chloride) 250 mls @ 250 mls/hr IV ONETIME ONE Stop: 03/06/18 05:29 Last Admin: 03/06/18 04:43 Dose: 250 mls/hr Azithromycin 500 mg/ Sodium (Chloride) 250 mls @ 250 mls/hr IV Q24H [facility] Last Admin: 03/07/18 20:57 Dose: 250 mls/hr Piperacillin Sod/Tazobactam (Sod 4.5 gm/ Sodium Chloride) 50 mls @ 100 mls/hr IV Q6H [facility] Last Admin: 03/08/18 20:30 Dose: Not Given Piperacillin Sod/Tazobactam (Sod 4.5 gm/ Sodium Chloride) 100 mls @ 200 mls/hr IV Q6H [facility] Piperacillin Sod/Tazobactam (Sod 4.5 gm/ Sodium Chloride) 100 mls @ 200 mls/hr IV Q6H [facility] Last Admin: 03/08/18 20:31 Dose: Not Given Piperacillin Sod/Tazobactam (Sod 4.5 gm/ Sodium Chloride) 50 mls @ 100 mls/hr IV Q6H [facility] Last Admin: 03/08/18 20:31 Dose: Not Given Piperacillin Sod/Tazobactam (Sod 4.5 gm/ Sodium Chloride) 100 mls @ 100 mls/hr IV Q6H [facility] Last Admin: 03/09/18 10:49 Dose: Not Given Piperacillin Sod/Tazobactam (Sod 4.5 gm/ Sodium Chloride) 100 mls @ 100 mls/hr IV Q6H [facility] Last Admin: 03/09/18 15:42 Dose: Not Given Piperacillin Sod/Tazobactam (Sod 4.5 gm/ Sodium Chloride) 100 mls @ 100 mls/hr IV Q6H [facility] Last Admin: 03/10/18 17:20 Dose: Not Given Potassium Chloride 20 meq/ (Premix) 100 mls @ 50 mls/hr IV Q2H [facility] Stop: 03/10/18 13:59 Last Infusion: 03/10/18 17:20 Dose: Infused Iopamidol (Isovue-300 (61%)) 50 ml IVPUSH ONETIME ONE Stop: 03/07/18 09:35 Last Admin: 03/07/18 09:43 Dose: 50 ml Iopamidol (Isovue-300 (61%)) 100 ml IVPUSH ONETIME ONE Stop: 03/09/18 08:38 Last Admin: 03/09/18 09:41 Dose: 100 ml Potassium Chloride (Klor-Con 10) 20 meq PO ONETIME ONE Stop: 03/08/18 17:29 Last Admin: 03/08/18 17:42 Dose: 20 meq Sodium Chloride (Sodium Chloride) 1 gm PO DAILY [facility] Last Admin: 03/10/18 08:53 Dose: 1 gm - Exam Quality Assessment: DVT Prophylaxis General: Alert, Oriented, Cooperative HEENT: Pupils Equal, Pupils Reactive, EOMI, Mucous Membr. Moist/[place] Neck: Supple Lungs: Clear to Auscultation, Normal Respiratory Effort Cardiovascular: Regular Rate, Regular Rhythm GI/Abdominal Exam: Normal Bowel Sounds, Soft, Non-Tender, No Organomegaly, No Distention, No Abnormal Bruit, No Mass, Pelvis Stable (Female) Exam: Normal External Exam, Normal Speculum Exam, Normal Bimanual Exam Back Exam: Normal Inspection, Full Range of Motion Extremities: Normal Inspection, Normal Range of Motion, Non-Tender, No Pedal Edema, Normal Capillary Refill, Pedal Edema Skin: Warm, Dry, Intact Wound/Incisions: Healing Well Neurological: No New Focal Deficit Psy/Mental Status: Alert, Normal Affect, Normal Mood - Problem List & Annotations (1) Weakness generalized SNOMED Code(s): 24787014 Code(s): R53.1 - WEAKNESS Status: Acute Current Visit: Yes (2) Unstable balance SNOMED Code(s): 307296074 Code(s): R26.89 - OTHER ABNORMALITIES OF GAIT AND MOBILITY Status: Acute Current Visit: Yes - Problem List Review Problem List Initiated/Reviewed/Updated: Yes - My Orders Last 24 Hours: My Active Orders 03/10/18 14:00 Sodium Chloride 1 gm PO TID 03/11/18 10:00 Potassium Chloride [KCL 20 MEQ in Water 100 ML] 20 meq Premix Bag 1 bag IV Q2H 03/12/18 05:00 BASIC METABOLIC PANEL,BMP [CHEM] DAILY [facility] WITH AUTO DIFF [HEME] DAILY 03/13/18 05:00 BASIC METABOLIC PANEL,BMP [CHEM] DAILY CBC WITH AUTO DIFF [HEME] DAILY - Plan Plan:: Patient is an 87-year-old female with medical history of hypertension who presented with complaint of generalized weakness and inability to get up. She was found to have pneumonia and was hyponatremia. Assessment/plan #. Hyponatremia Due to hypervolemia. BNP elevated at more than 600. Improving CT scan of the chest; bilateral pleural effusion Continue Diuretics Salt tablets 1 g tid BMP daily Hypokalemia K 2.9 will replace IV Hypophosphatemia Resolved #.Possible pneumonia CT scan demonstrated possible bilateral lower lobe infiltrate Patient did have fever initially and also had elevated white cell count. Has been on intravenous antibiotics. Continue for now #. Possible chronic cholecystitis CT scan suggested chronic cholecystitis However patient is not having pain at this point Continue empiric intravenous antibiotics. The family is not keen on proceeding with surgery at this point #. Possible sepsis Likely due to pneumonia vs cholecystitis Resolving #. Probable meningioma CT scan of the head showed a 2 cm intracranial mass likely due to meningioma. This is likely responsible for the patient's symptoms #. Acute encephalopathy Probably multifactorial including infection and hyponatremia Improving #. Hypertension blood pressure has been mostly within acceptable limits Generalized weakness PT/OT
[2018-03-11] MEDS: Potassium Chloride 20 MEQ in Premix Bag 1 BAG IV SCH ×2 (12:17→17:36)
[2018-03-11] MEDS: Nystatin Crm 15 GM Tube TOP SCH ×2 (16:08→22:24)
[2018-03-11] MEDS ORDERED: Potassium Chloride 20 MEQ in Premix Bag 1 BAG IV ONE (17:00)
[2018-03-12] MEDS: Sodium Chloride 0.9% 10 ML Syringe FLUSH PRN (01:24)
[2018-03-12] MEDS: Piperacillin/Tazobactam 4.5 GM in Sodium Chloride 0.9% 100 ML IV SCH ×4 (01:25→18:40)
[2018-03-12 06:59] LABS: ANION GAP 12.5; CHLORIDE,CL 96 mmol/L (101-111); SODIUM,NA 131 mmol/L (135-145)
[2018-03-12] MEDS: Atenolol 25 MG Tab PO SCH (09:04)
[2018-03-12] MEDS: Ondansetron 4 MG Tab.DIS PO PRN (09:04)
[2018-03-12] MEDS: Aspirin 81 MG Tab.Chew PO SCH (09:04)
[2018-03-12] MEDS: Sodium Chloride 1 GM Tab PO SCH (09:04)
[2018-03-12] MEDS: Enoxaparin 40 MG/0.4 ML Syringe SUBCUT SCH (09:05)
[2018-03-12] MEDS: Furosemide 20 MG/2 ML VIAL IVPUSH SCH ×2 (09:05→14:33)
[2018-03-12] MEDS: Docusate Sodium 100 MG Cap PO SCH ×2 (09:05→09:16)
[2018-03-12] MEDS: Nystatin Crm 15 GM Tube TOP SCH ×3 (09:06→20:36)
[2018-03-12] MEDS: Sodium Chloride 0.9% 10 ML Syringe FLUSH SCH (09:06)
[2018-03-12] MEDS ORDERED: Potassium Chloride 20 MEQ in Premix Bag 1 BAG IV ONE (09:55)
--- NOTE | 2018-03-12 11:47 | PCM.PN ---
- General Info Date of Service: 03/12/18 Admission Dx/Problem (Free Text): Generalized weakness Subjective Update: Seen on hospital subsequent follow up. She had nausea and vomiting this morning after taking salt tablet. Says the salt tablet is always upset her roger after taking it. Her Na this AM is 131. Patient AAO x 3. Following commands. Says her strength is gradually improving. Denies any new other complaints. Lab review; Na today 131>130. K 3.5 Functional Status: Reports: Pain Controlled - Review of Systems General: Reports: No Symptoms HEENT: Reports: No Symptoms Pulmonary: Reports: No Symptoms Cardiovascular: Reports: No Symptoms Gastrointestinal: Reports: No Symptoms Genitourinary: Reports: No Symptoms Musculoskeletal: Reports: No Symptoms Skin: Reports: No Symptoms Neurological: Reports: No Symptoms Psychiatric: Reports: No Symptoms - Patient Data Vitals - Most Recent: Last Vital Signs Temp 98.6 F 03/12/18 08:00 Pulse 72 03/12/18 09:04 Resp 20 03/12/18 08:00 BP 113/62 03/12/18 09:04 Pulse Ox 96 03/12/18 08:00 Weight - Most Recent: 171 lb 12.8 oz I&O - Last 24 Hours: Intake & Output 03/11/18 03/12/18 03/12/18 22:59 06:59 14:59 Intake Total 350 150 100 Output Total 675 400 Balance -325 -250 100 Lab Results Last 24 Hours: Laboratory Results - last 24 hr 03/11/18 03/12/18 03/12/18 Range/Units 13:37 05:40 05:40 WBC 11.0 H (5.0-10.0) 10^3/uL RBC 3.67 L (4.2-5.4) 10^6/uL Hgb 10.5 L (12.0-16.0) g/dL Hct 31.9 L (37.0-47.0) % MCV 86.9 (80-100) fL MCH 28.6 (27.0-34.0) pg MCHC 32.9 L (33.0-35.0) g/dL Plt Count 267 (150-450) 10^3/uL Neut % (Auto) 74.4 (42.2-75.2) % Lymph % (Auto) 15.4 L (20.5-50.1) % [place] % (Auto) 8.3 H (2-8) % Eos % (Auto) 1.7 (1.0-3.0) % Baso % (Auto) 0.2 (0.0-1.0) % Sodium 131 L (135-145) mmol/L Potassium 3.5 L (3.6-5.0) mmol/L Chloride 96 L (101-111) mmol/L Carbon Dioxide 26.0 (21.0-31.0) mmol/L Anion Gap 12.5 BUN 9 (7-18) mg/dL Creatinine 0.7 (0.6-1.3) mg/dL Est Cr Clr Drug Dosing 53.01 mL/min Estimated GFR (MDRD) > 60 Glucose 94 (74-105) mg/dL Calcium 7.9 L (8.4-10.2) mg/dl Ammonia 12 (11-35) umol/L Med Orders - Current: Current Medications Acetaminophen (Tylenol) 650 mg PO Q4H PRN PRN Reason: Pain (Mild 1-3)/fever Last Admin: 03/09/18 22:41 Dose: 650 mg Artificial Tears (Refresh Celluvisc) 0 each EYEBOTH ASDIRECTED PRN PRN Reason: Dry Eyes Aspirin (Aspirin) 81 mg PO DAILY [facility] Last Admin: 03/12/18 09:04 Dose: 81 mg Atenolol (Tenormin) 25 mg PO DAILY [facility] Last Admin: 03/12/18 09:04 Dose: 25 mg Docusate Sodium (Colace) 100 mg PO DAILY [facility] Last Admin: 03/12/18 09:16 Dose: Not Given Enoxaparin Sodium (Lovenox) 40 mg SUBCUT DAILY [facility] Last Admin: 03/12/18 09:05 Dose: 40 mg Furosemide (Lasix) 20 mg IVPUSH BIDDIURETIC [facility] Last Admin: 03/12/18 09:05 Dose: 20 mg Piperacillin Sod/Tazobactam (Sod 4.5 gm/ Sodium Chloride) 100 mls @ 100 mls/hr IV Q6HR [facility] Last Admin: 03/12/18 06:40 Dose: 100 mls/hr Potassium Chloride 20 meq/ (Premix) 100 mls @ 50 mls/hr IV ONETIME ONE Stop: 03/12/18 11:54 Last Admin: 03/12/18 11:15 Dose: 50 mls/hr Ibuprofen (Motrin) 200 mg PO TID PRN PRN Reason: Pain/Fever Last Admin: 03/07/18 01:23 Dose: 200 mg Nystatin (Nystatin Crm) 0 gm TOP TID [facility] Last Admin: 03/12/18 09:06 Dose: 1 applic Ondansetron HCl (Zofran Odt) 4 mg PO Q4H PRN PRN Reason: nausea, able to take PO Last Admin: 03/12/18 09:04 Dose: 4 mg Oxycodone/Acetaminophen (Percocet 325-5 Mg) 1 tab PO Q4H PRN PRN Reason: Pain (moderate 4-6) Sodium Chloride (Saline Flush) 10 ml FLUSH ASDIRECTED PRN PRN Reason: Keep Vein Open Last Admin: 03/12/18 01:24 Dose: 10 ml Sodium Chloride (Saline Flush) 10 ml FLUSH DAILY [facility] Last Admin: 03/12/18 09:06 Dose: 10 ml Discontinued Medications Acetaminophen (Tylenol) 325 mg PO NOW ONE Stop: 03/06/18 02:07 Last Admin: 03/06/18 02:14 Dose: 325 mg Sodium Chloride (Normal Saline) 1,000 mls @ 75 mls/hr IV ASDIRECTED [facility] Last Infusion: 03/10/18 07:14 Dose: Infused Ceftriaxone Sodium 1,000 mg/ (Sodium Chloride) 100 mls @ 200 mls/hr IV Q24H [facility] Last Admin: 03/08/18 04:00 Dose: 200 mls/hr Azithromycin 500 mg/ Sodium (Chloride) 250 mls @ 250 mls/hr IV ONETIME ONE Stop: 03/06/18 05:29 Last Admin: 03/06/18 04:43 Dose: 250 mls/hr Azithromycin 500 mg/ Sodium (Chloride) 250 mls @ 250 mls/hr IV Q24H [facility] Last Admin: 03/07/18 20:57 Dose: 250 mls/hr Piperacillin Sod/Tazobactam (Sod 4.5 gm/ Sodium Chloride) 50 mls @ 100 mls/hr IV Q6H [facility] Last Admin: 03/08/18 20:30 Dose: Not Given Piperacillin Sod/Tazobactam (Sod 4.5 gm/ Sodium Chloride) 100 mls @ 200 mls/hr IV Q6H [facility] Piperacillin Sod/Tazobactam (Sod 4.5 gm/ Sodium Chloride) 100 mls @ 200 mls/hr IV Q6H [facility] Last Admin: 03/08/18 20:31 Dose: Not Given Piperacillin Sod/Tazobactam (Sod 4.5 gm/ Sodium Chloride) 50 mls @ 100 mls/hr IV Q6H [facility] Last Admin: 03/08/18 20:31 Dose: Not Given Piperacillin Sod/Tazobactam (Sod 4.5 gm/ Sodium Chloride) 100 mls @ 100 mls/hr IV Q6H [facility] Last Admin: 03/09/18 10:49 Dose: Not Given Piperacillin Sod/Tazobactam (Sod 4.5 gm/ Sodium Chloride) 100 mls @ 100 mls/hr IV Q6H [facility] Last Admin: 03/09/18 15:42 Dose: Not Given Piperacillin Sod/Tazobactam (Sod 4.5 gm/ Sodium Chloride) 100 mls @ 100 mls/hr IV Q6H [facility] Last Admin: 03/10/18 17:20 Dose: Not Given Potassium Chloride 20 meq/ (Premix) 100 mls @ 50 mls/hr IV Q2H [facility] Stop: 03/10/18 13:59 Last Infusion: 03/10/18 17:20 Dose: Infused Potassium Chloride 20 meq/ (Premix) 100 mls @ 50 mls/hr IV Q2H [facility] Stop: 03/11/18 13:59 Last Admin: 03/11/18 17:36 Dose: Not Given Potassium Chloride 20 meq/ (Premix) 100 mls @ 50 mls/hr IV ONETIME ONE Stop: 03/11/18 18:59 Last Admin: 03/11/18 17:05 Dose: 50 mls/hr Iopamidol (Isovue-300 (61%)) 50 ml IVPUSH ONETIME ONE Stop: 03/07/18 09:35 Last Admin: 03/07/18 09:43 Dose: 50 ml Iopamidol (Isovue-300 (61%)) 100 ml IVPUSH ONETIME ONE Stop: 03/09/18 08:38 Last Admin: 03/09/18 09:41 Dose: 100 ml Potassium Chloride (Klor-Con 10) 20 meq PO ONETIME ONE Stop: 03/08/18 17:29 Last Admin: 03/08/18 17:42 Dose: 20 meq Sodium Chloride (Sodium Chloride) 1 gm PO DAILY [facility] Last Admin: 03/10/18 08:53 Dose: 1 gm Sodium Chloride (Sodium Chloride) 1 gm PO TID [facility] Last Admin: 03/12/18 09:04 Dose: 1 gm - Exam Quality Assessment: DVT Prophylaxis General: Alert, Oriented HEENT: Pupils Equal, Pupils Reactive, EOMI, Mucous Membr. Moist/[place] Neck: Supple Lungs: Clear to Auscultation, Normal Respiratory Effort Cardiovascular: Regular Rate, Regular Rhythm GI/Abdominal Exam: Normal Bowel Sounds, Soft, Non-Tender, No Organomegaly, No Distention, No Abnormal Bruit, No Mass, Pelvis Stable (Female) Exam: Normal External Exam, Normal Speculum Exam, Normal Bimanual Exam Back Exam: Normal Inspection, Full Range of Motion Extremities: Normal Inspection, Normal Range of Motion, Non-Tender, No Pedal Edema, Normal Capillary Refill Skin: Warm, Dry, Intact Wound/Incisions: Healing Well Neurological: No New Focal Deficit Psy/Mental Status: Alert, Normal Affect, Normal Mood - Problem List & Annotations (1) Weakness generalized SNOMED Code(s): 46573761 Code(s): R53.1 - WEAKNESS Status: Acute Current Visit: Yes (2) Unstable balance SNOMED Code(s): 654196758 Code(s): R26.89 - OTHER ABNORMALITIES OF GAIT AND MOBILITY Status: Acute Current Visit: Yes (3) Hypokalemia SNOMED Code(s): 54181742 Code(s): E87.6 - HYPOKALEMIA Status: Acute Current Visit: Yes - Problem List Review Problem List Initiated/Reviewed/Updated: Yes - My Orders Last 24 Hours: My Active Orders 03/11/18 14:00 Nystatin [Nystatin Crm] See Dose Instructions TOP TID 03/12/18 09:55 Potassium Chloride [KCL 20 MEQ in Water 100 ML] 20 meq Premix Bag 1 bag IV ONETIME 03/13/18 05:00 BASIC METABOLIC PANEL,BMP [CHEM] DAILY CBC WITH AUTO DIFF [HEME] DAILY - Plan Plan:: Patient is an 87-year-old female with medical history of hypertension who presented with complaint of generalized weakness and inability to get up. She was found to have pneumonia and was hyponatremia. Assessment/plan #. Hyponatremia Due to hypervolemia. BNP elevated at more than 600. Improving, [address] scan of the chest; bilateral pleural effusion Continue Diuretics will d/c Salt tablets given side effect BMP daily Hypokalemia K 3.5 will replace IV Hypophosphatemia Resolved #.Possible pneumonia CT scan demonstrated possible bilateral lower lobe infiltrate Patient did have fever initially and also had elevated white cell count. Has been on intravenous antibiotics. Continue for now #. Possible chronic cholecystitis CT scan suggested chronic cholecystitis However patient is not having pain at this point Continue empiric intravenous antibiotics. The family is not keen on proceeding with surgery at this point #. Possible sepsis Likely due to pneumonia vs cholecystitis Resolving #. Probable meningioma CT scan of the head showed a 2 cm intracranial mass likely due to meningioma. This is likely responsible for the patient's symptoms #. Acute encephalopathy Probably multifactorial including infection and hyponatremia Improving #. Hypertension blood pressure has been mostly within acceptable limits Generalized weakness improving Continue PT/OT
[2018-03-13] MEDS: Piperacillin/Tazobactam 4.5 GM in Sodium Chloride 0.9% 100 ML IV SCH ×5 (06:05→18:17)
[2018-03-13 06:49] LABS: ANION GAP 10.6
[2018-03-13] MEDS: Furosemide 20 MG/2 ML VIAL IVPUSH SCH ×2 (08:47→14:36)
[2018-03-13] MEDS: Docusate Sodium 100 MG Cap PO SCH (08:47)
[2018-03-13] MEDS: Aspirin 81 MG Tab.Chew PO SCH (08:47)
[2018-03-13] MEDS: Atenolol 25 MG Tab PO SCH (08:48)
[2018-03-13] MEDS: Enoxaparin 40 MG/0.4 ML Syringe SUBCUT SCH (08:49)
[2018-03-13] MEDS: Sodium Chloride 0.9% 10 ML Syringe FLUSH SCH (08:49)
[2018-03-13] MEDS: Nystatin Crm 15 GM Tube TOP SCH (08:50)
--- NOTE | 2018-03-13 10:54 | PCM.PN ---
- General Info Date of Service: 03/13/18 Admission Dx/Problem (Free Text): Generalized weakness Subjective Update: Seen on hospital subsequent stay. Clinically doing well. Patient AAO x 3. Says her strength is gradually improving. Lab review; Na today 131>130. K 3.6 Functional Status: Reports: Pain Controlled - Review of Systems General: Reports: No Symptoms HEENT: Reports: No Symptoms Pulmonary: Reports: No Symptoms Cardiovascular: Reports: No Symptoms Gastrointestinal: Reports: No Symptoms Genitourinary: Reports: No Symptoms Musculoskeletal: Reports: No Symptoms Skin: Reports: No Symptoms Neurological: Reports: No Symptoms Psychiatric: Reports: No Symptoms - Patient Data Vitals - Most Recent: Last Vital Signs Temp 97.4 F 03/13/18 08:28 Pulse 79 03/13/18 08:48 Resp 18 03/13/18 08:28 BP 154/70 H 03/13/18 08:48 Pulse Ox 94 L 03/13/18 08:28 Weight - Most Recent: 171 lb 12.8 oz I&O - Last 24 Hours: Intake & Output 03/12/18 03/13/18 03/13/18 22:59 06:59 14:59 Intake Total 296 300 240 Output Total 650 1000 Balance -354 -700 240 Lab Results Last 24 Hours: Laboratory Results - last 24 hr 03/13/18 03/13/18 03/13/18 Range/Units 05:25 05:25 05:25 WBC 10.7 H (5.0-10.0) 10^3/uL RBC 3.72 L (4.2-5.4) 10^6/uL Hgb 10.6 L (12.0-16.0) g/dL Hct 32.8 L (37.0-47.0) % MCV 88.2 (80-100) fL MCH 28.5 (27.0-34.0) pg MCHC 32.3 L (33.0-35.0) g/dL Plt Count 275 (150-450) 10^3/uL Neut % (Auto) 70.4 (42.2-75.2) % Lymph % (Auto) 16.6 L (20.5-50.1) % [place] % (Auto) 10.0 H (2-8) % Eos % (Auto) 2.6 (1.0-3.0) % Baso % (Auto) 0.4 (0.0-1.0) % Add Manual Diff Yes Neutrophils % (Manual) 69 (42-75) % Band Neutrophils % 2 % Lymphocytes % (Manual) 18 L (20-50) % Monocytes % (Manual) 6 (2-8) % Eosinophils % (Manual) 4 H (1-3) % Basophils % (Manual) 1 Atypical Lymphocytes Few Vacuolated Monocytes Few Platelet Estimate Adequate Giant Platelets Few Sodium 131 L (135-145) mmol/L Potassium 3.6 (3.6-5.0) mmol/L Chloride 95 L (101-111) mmol/L Carbon Dioxide 29.0 (21.0-31.0) mmol/L Anion Gap 10.6 BUN 11 (7-18) mg/dL Creatinine 0.9 (0.6-1.3) mg/dL Est Cr Clr Drug Dosing 41.23 mL/min Estimated GFR (MDRD) 59 Glucose 97 (74-105) mg/dL Calcium 8.2 L (8.4-10.2) mg/dl Phosphorus 2.9 (2.5-4.6) mg/dL Med Orders - Current: Current Medications Acetaminophen (Tylenol) 650 mg PO Q4H PRN PRN Reason: Pain (Mild 1-3)/fever Last Admin: 03/09/18 22:41 Dose: 650 mg Artificial Tears (Refresh Celluvisc) 0 each EYEBOTH ASDIRECTED PRN PRN Reason: Dry Eyes Aspirin (Aspirin) 81 mg PO DAILY [facility] Last Admin: 03/13/18 08:47 Dose: 81 mg Atenolol (Tenormin) 25 mg PO DAILY [facility] Last Admin: 03/13/18 08:48 Dose: 25 mg Docusate Sodium (Colace) 100 mg PO DAILY [facility] Last Admin: 03/13/18 08:47 Dose: Not Given Enoxaparin Sodium (Lovenox) 40 mg SUBCUT DAILY [facility] Last Admin: 03/13/18 08:49 Dose: 40 mg Furosemide (Lasix) 20 mg IVPUSH BIDDIURETIC [facility] Last Admin: 03/13/18 08:47 Dose: 20 mg Piperacillin Sod/Tazobactam (Sod 4.5 gm/ Sodium Chloride) 100 mls @ 100 mls/hr IV Q6HR [facility] Last Admin: 03/13/18 06:05 Dose: 100 mls/hr Ibuprofen (Motrin) 200 mg PO TID PRN PRN Reason: Pain/Fever Last Admin: 03/07/18 01:23 Dose: 200 mg Nystatin (Nystatin Crm) 0 gm TOP TID [facility] Last Admin: 03/13/18 08:50 Dose: 1 applic Ondansetron HCl (Zofran Odt) 4 mg PO Q4H PRN PRN Reason: nausea, able to take PO Last Admin: 03/12/18 09:04 Dose: 4 mg Oxycodone/Acetaminophen (Percocet 325-5 Mg) 1 tab PO Q4H PRN PRN Reason: Pain (moderate 4-6) Sodium Chloride (Saline Flush) 10 ml FLUSH ASDIRECTED PRN PRN Reason: Keep Vein Open Last Admin: 03/12/18 01:24 Dose: 10 ml Sodium Chloride (Saline Flush) 10 ml FLUSH DAILY [facility] Last Admin: 03/13/18 08:49 Dose: 10 ml Discontinued Medications Acetaminophen (Tylenol) 325 mg PO NOW ONE Stop: 03/06/18 02:07 Last Admin: 03/06/18 02:14 Dose: 325 mg Sodium Chloride (Normal Saline) 1,000 mls @ 75 mls/hr IV ASDIRECTED [facility] Last Infusion: 03/10/18 07:14 Dose: Infused Ceftriaxone Sodium 1,000 mg/ (Sodium Chloride) 100 mls @ 200 mls/hr IV Q24H [facility] Last Admin: 03/08/18 04:00 Dose: 200 mls/hr Azithromycin 500 mg/ Sodium (Chloride) 250 mls @ 250 mls/hr IV ONETIME ONE Stop: 03/06/18 05:29 Last Admin: 03/06/18 04:43 Dose: 250 mls/hr Azithromycin 500 mg/ Sodium (Chloride) 250 mls @ 250 mls/hr IV Q24H [facility] Last Admin: 03/07/18 20:57 Dose: 250 mls/hr Piperacillin Sod/Tazobactam (Sod 4.5 gm/ Sodium Chloride) 50 mls @ 100 mls/hr IV Q6H [facility] Last Admin: 03/08/18 20:30 Dose: Not Given Piperacillin Sod/Tazobactam (Sod 4.5 gm/ Sodium Chloride) 100 mls @ 200 mls/hr IV Q6H [facility] Piperacillin Sod/Tazobactam (Sod 4.5 gm/ Sodium Chloride) 100 mls @ 200 mls/hr IV Q6H [facility] Last Admin: 03/08/18 20:31 Dose: Not Given Piperacillin Sod/Tazobactam (Sod 4.5 gm/ Sodium Chloride) 50 mls @ 100 mls/hr IV Q6H [facility] Last Admin: 03/08/18 20:31 Dose: Not Given Piperacillin Sod/Tazobactam (Sod 4.5 gm/ Sodium Chloride) 100 mls @ 100 mls/hr IV Q6H [facility] Last Admin: 03/09/18 10:49 Dose: Not Given Piperacillin Sod/Tazobactam (Sod 4.5 gm/ Sodium Chloride) 100 mls @ 100 mls/hr IV Q6H [facility] Last Admin: 03/09/18 15:42 Dose: Not Given Piperacillin Sod/Tazobactam (Sod 4.5 gm/ Sodium Chloride) 100 mls @ 100 mls/hr IV Q6H [facility] Last Admin: 03/10/18 17:20 Dose: Not Given Potassium Chloride 20 meq/ (Premix) 100 mls @ 50 mls/hr IV Q2H [facility] Stop: 03/10/18 13:59 Last Infusion: 03/10/18 17:20 Dose: Infused Potassium Chloride 20 meq/ (Premix) 100 mls @ 50 mls/hr IV Q2H [facility] Stop: 03/11/18 13:59 Last Admin: 03/11/18 17:36 Dose: Not Given Potassium Chloride 20 meq/ (Premix) 100 mls @ 50 mls/hr IV ONETIME ONE Stop: 03/11/18 18:59 Last Admin: 03/11/18 17:05 Dose: 50 mls/hr Potassium Chloride 20 meq/ (Premix) 100 mls @ 50 mls/hr IV ONETIME ONE Stop: 03/12/18 11:54 Last Admin: 03/12/18 11:15 Dose: 50 mls/hr Iopamidol (Isovue-300 (61%)) 50 ml IVPUSH ONETIME ONE Stop: 03/07/18 09:35 Last Admin: 03/07/18 09:43 Dose: 50 ml Iopamidol (Isovue-300 (61%)) 100 ml IVPUSH ONETIME ONE Stop: 03/09/18 08:38 Last Admin: 03/09/18 09:41 Dose: 100 ml Potassium Chloride (Klor-Con 10) 20 meq PO ONETIME ONE Stop: 03/08/18 17:29 Last Admin: 03/08/18 17:42 Dose: 20 meq Sodium Chloride (Sodium Chloride) 1 gm PO DAILY [facility] Last Admin: 03/10/18 08:53 Dose: 1 gm Sodium Chloride (Sodium Chloride) 1 gm PO TID [facility] Last Admin: 03/12/18 09:04 Dose: 1 gm - Exam Quality Assessment: DVT Prophylaxis General: Alert, Oriented HEENT: Pupils Equal, Pupils Reactive, EOMI, Mucous Membr. Moist/[place] Neck: Supple Lungs: Clear to Auscultation, Normal Respiratory Effort Cardiovascular: Regular Rate, Regular Rhythm GI/Abdominal Exam: Normal Bowel Sounds, Soft, Non-Tender, No Organomegaly, No Distention, No Abnormal Bruit, No Mass, Pelvis Stable (Female) Exam: Normal External Exam, Normal Speculum Exam, Normal Bimanual Exam Back Exam: Normal Inspection, Full Range of Motion Extremities: Normal Inspection, Normal Range of Motion, Non-Tender, No Pedal Edema, Normal Capillary Refill Skin: Warm, Dry, Intact Wound/Incisions: Healing Well Neurological: No New Focal Deficit Psy/Mental Status: Alert, Normal Affect, Normal Mood - Problem List & Annotations (1) Weakness generalized SNOMED Code(s): 44715016 Code(s): R53.1 - WEAKNESS Status: Acute Current Visit: Yes (2) Unstable balance SNOMED Code(s): 029265334 Code(s): R26.89 - OTHER ABNORMALITIES OF GAIT AND MOBILITY Status: Acute Current Visit: Yes (3) Hypokalemia SNOMED Code(s): 84854107 Code(s): E87.6 - HYPOKALEMIA Status: Acute Current Visit: Yes - Problem List Review Problem List Initiated/Reviewed/Updated: Yes - Plan Plan:: Patient is an 87-year-old female with medical history of hypertension who presented with complaint of generalized weakness and inability to get up. She was found to have pneumonia and was hyponatremic. Assessment/plan #. Hyponatremia Due to hypervolemia. BNP was more than 600. Improving, [address] scan of the chest; bilateral pleural effusion Continue IV lasix BMP daily Hypokalemia Resolved Hypophosphatemia Resolved #.Possible pneumonia CT scan demonstrated possible bilateral lower lobe infiltrate Patient did have fever initially and also had elevated white cell count. Has been on intravenous antibiotics. Continue for now #. Possible chronic cholecystitis CT scan suggested chronic cholecystitis However patient is not having pain at this point Continue empiric intravenous antibiotics. The family is not keen on proceeding with surgery at this point #. Possible sepsis Likely due to pneumonia vs cholecystitis Resolving #. Probable meningioma CT scan of the head showed a 2 cm intracranial mass likely due to meningioma. This is likely responsible for the patient's symptoms #. Acute encephalopathy Probably multifactorial including infection and hyponatremia Improving #. Hypertension blood pressure has been mostly within acceptable limits Generalized weakness improving Continue PT/OT
[2018-03-13] MEDS: Nystatin Topical Powder 30 GM Bottle TOP SCH ×3 (14:36→22:20)
[2018-03-13] MEDS: Sodium Chloride 0.9% 10 ML Syringe FLUSH PRN (19:33)
[2018-03-14] MEDS: Sodium Chloride 0.9% 10 ML Syringe FLUSH PRN ×3 (00:15→06:02)
[2018-03-14] MEDS: Piperacillin/Tazobactam 4.5 GM in Sodium Chloride 0.9% 100 ML IV SCH ×2 (00:15→06:01)
[2018-03-14] MEDS: Atenolol 25 MG Tab PO SCH (08:06)
[2018-03-14] MEDS: Aspirin 81 MG Tab.Chew PO SCH (08:06)
[2018-03-14] MEDS: Enoxaparin 40 MG/0.4 ML Syringe SUBCUT SCH (08:06)
[2018-03-14] MEDS: Docusate Sodium 100 MG Cap PO SCH (08:06)
[2018-03-14] MEDS: Sodium Chloride 0.9% 10 ML Syringe FLUSH SCH (08:06)
[2018-03-14] MEDS: Furosemide 20 MG/2 ML VIAL IVPUSH SCH (08:07)
[2018-03-14] MEDS: Nystatin Topical Powder 30 GM Bottle TOP SCH (09:55)
--- NOTE | 2018-03-14 11:03 | PCM.DCSUM1 ---
Discharge Summary - Hospital Course HPI Initial Comments: Patient is an 87-year-old female with medical history of hypertension who presented with complaint of generalized weakness and inability to get up and walk. She was found to have pneumonia with hyponatremia thought to be due to hypervolemia. She was subsequently admitted. CT scan of the chest showed b/l infiltrate and bilateral pleural effusion. She received IV abx and electrolyte replacement. She is been coping with PT/OT. Her hyponatremia has improved and generalized weakness is also improving but she has not return to her baseline. She is being discharged to swing bed to continue PT/OT. She will complete PO abx for 7 more days. Diagnosis: Stroke: No - Discharge Data Discharge Date: 03/14/18 Discharge Disposition: DC/Tfer W/I Hosp To Swing Condition: Fair - Discharge Diagnosis/Problem(s) (1) Weakness generalized SNOMED Code(s): 44506725 ICD Code: R53.1 - WEAKNESS Status: Acute (2) Unstable balance SNOMED Code(s): 653041599 ICD Code: R26.89 - OTHER ABNORMALITIES OF GAIT AND MOBILITY Status: Acute (3) Hypokalemia SNOMED Code(s): 51050776 ICD Code: E87.6 - HYPOKALEMIA Status: Acute - Patient Summary/Data Consults: Consultations 03/08/18 10:25 OT Evaluation and Treatment [CONS] Routine PT Evaluation and Treatment [CONS] Routine - Patient Instructions Fluid Restriction: 1500 mL Notify Provider of: Fever, Increased Pain, Swelling and Redness - Discharge Plan Home Medications: Home Meds Aspirin [Children's Aspirin] 81 mg PO DAILY 03/06/18 [History] Atenolol 25 mg PO DAILY 03/06/18 [History] Forms: ED Department Discharge Referrals: PCP,None [Primary Care Provider] - - Discharge Summary/Plan Comment DC Time >30 min.: Yes - General Info Admission Dx/Problem (Free Text: Generalized weakness Subjective Update: Patient is an 87-year-old female with medical history of hypertension who presented with complaint of generalized weakness and inability to get up and walk. She was found to have pneumonia with hyponatremia thought to be due to hypervolemia. She was subsequently admitted. CT scan of the chest showed b/l infiltrate and bilateral pleural effusion. She received IV abx and electrolyte replacement. She is been coping with PT/OT. Her hyponatremia has improved and generalized weakness is also improving but she has not return to her baseline. She is being discharged to swing bed to continue PT/OT. She will complete PO abx for 7 more days. Functional Status: Reports: Pain Controlled - Review of Systems General: Reports: No Symptoms HEENT: Reports: No Symptoms Pulmonary: Reports: No Symptoms Cardiovascular: Reports: No Symptoms Gastrointestinal: Reports: No Symptoms Genitourinary: Reports: No Symptoms Musculoskeletal: Reports: No Symptoms, Other (weakness) Skin: Reports: No Symptoms Neurological: Reports: No Symptoms Psychiatric: Reports: No Symptoms - Patient Data Vitals - Most Recent: Last Vital Signs Temp 98.6 F 03/14/18 08:00 Pulse 79 03/14/18 08:06 Resp 16 03/14/18 08:00 BP 131/64 03/14/18 08:06 Pulse Ox 96 03/14/18 08:00 Weight - Most Recent: 171 lb 12.8 oz I&O - Last 24 hours: Intake & Output 03/13/18 03/14/18 03/14/18 22:59 06:59 14:59 Intake Total 473 144 102 Output Total 1750 1000 400 Balance -1277 -856 -298 Lab Results - Last 24 hrs: Laboratory Results - last 24 hr 03/14/18 Range/Units 10:23 Sodium 131 L (135-145) mmol/L Potassium 3.0 L (3.6-5.0) mmol/L Chloride 93 L (101-111) mmol/L Carbon Dioxide 27.0 (21.0-31.0) mmol/L Anion Gap 14.0 BUN 12 (7-18) mg/dL Creatinine 1.0 (0.6-1.3) mg/dL Est Cr Clr Drug Dosing 37.10 mL/min Estimated GFR (MDRD) 52 Glucose 195 H (74-105) mg/dL Calcium 8.7 (8.4-10.2) mg/dl Med Orders - Current: Current Medications Discontinued Medications Acetaminophen (Tylenol) 325 mg PO NOW ONE Stop: 03/06/18 02:07 Last Admin: 03/06/18 02:14 Dose: 325 mg Acetaminophen (Tylenol) 650 mg PO Q4H PRN PRN Reason: Pain (Mild 1-3)/fever Last Admin: 03/09/18 22:41 Dose: 650 mg Artificial Tears (Refresh Celluvisc) 0 each EYEBOTH ASDIRECTED PRN PRN Reason: Dry Eyes Aspirin (Aspirin) 81 mg PO DAILY [facility] Last Admin: 03/14/18 08:06 Dose: 81 mg Atenolol (Tenormin) 25 mg PO DAILY [facility] Last Admin: 03/14/18 08:06 Dose: 25 mg Docusate Sodium (Colace) 100 mg PO DAILY [facility] Last Admin: 03/14/18 08:06 Dose: Not Given Enoxaparin Sodium (Lovenox) 40 mg SUBCUT DAILY [facility] Last Admin: 03/14/18 08:06 Dose: 40 mg Furosemide (Lasix) 20 mg IVPUSH BIDDIURETIC [facility] Last Admin: 03/14/18 08:07 Dose: 20 mg Sodium Chloride (Normal Saline) 1,000 mls @ 75 mls/hr IV ASDIRECTED [facility] Last Infusion: 03/10/18 07:14 Dose: Infused Ceftriaxone Sodium 1,000 mg/ (Sodium Chloride) 100 mls @ 200 mls/hr IV Q24H [facility] Last Admin: 03/08/18 04:00 Dose: 200 mls/hr Azithromycin 500 mg/ Sodium (Chloride) 250 mls @ 250 mls/hr IV ONETIME ONE Stop: 03/06/18 05:29 Last Admin: 03/06/18 04:43 Dose: 250 mls/hr Azithromycin 500 mg/ Sodium (Chloride) 250 mls @ 250 mls/hr IV Q24H [facility] Last Admin: 03/07/18 20:57 Dose: 250 mls/hr Piperacillin Sod/Tazobactam (Sod 4.5 gm/ Sodium Chloride) 50 mls @ 100 mls/hr IV Q6H [facility] Last Admin: 03/08/18 20:30 Dose: Not Given Piperacillin Sod/Tazobactam (Sod 4.5 gm/ Sodium Chloride) 100 mls @ 200 mls/hr IV Q6H [facility] Piperacillin Sod/Tazobactam (Sod 4.5 gm/ Sodium Chloride) 100 mls @ 200 mls/hr IV Q6H [facility] Last Admin: 03/08/18 20:31 Dose: Not Given Piperacillin Sod/Tazobactam (Sod 4.5 gm/ Sodium Chloride) 50 mls @ 100 mls/hr IV Q6H [facility] Last Admin: 03/08/18 20:31 Dose: Not Given Piperacillin Sod/Tazobactam (Sod 4.5 gm/ Sodium Chloride) 100 mls @ 100 mls/hr IV Q6H [facility] Last Admin: 03/09/18 10:49 Dose: Not Given Piperacillin Sod/Tazobactam (Sod 4.5 gm/ Sodium Chloride) 100 mls @ 100 mls/hr IV Q6H [facility] Last Admin: 03/09/18 15:42 Dose: Not Given Piperacillin Sod/Tazobactam (Sod 4.5 gm/ Sodium Chloride) 100 mls @ 100 mls/hr IV Q6H [facility] Last Admin: 03/10/18 17:20 Dose: Not Given Potassium Chloride 20 meq/ (Premix) 100 mls @ 50 mls/hr IV Q2H [facility] Stop: 03/10/18 13:59 Last Infusion: 03/10/18 17:20 Dose: Infused Piperacillin Sod/Tazobactam (Sod 4.5 gm/ Sodium Chloride) 100 mls @ 100 mls/hr IV Q6HR [facility] Last Admin: 03/14/18 06:01 Dose: 100 mls/hr Potassium Chloride 20 meq/ (Premix) 100 mls @ 50 mls/hr IV Q2H [facility] Stop: 03/11/18 13:59 Last Admin: 03/11/18 17:36 Dose: Not Given Potassium Chloride 20 meq/ (Premix) 100 mls @ 50 mls/hr IV ONETIME ONE Stop: 03/11/18 18:59 Last Admin: 03/11/18 17:05 Dose: 50 mls/hr Potassium Chloride 20 meq/ (Premix) 100 mls @ 50 mls/hr IV ONETIME ONE Stop: 03/12/18 11:54 Last Admin: 03/12/18 11:15 Dose: 50 mls/hr Ibuprofen (Motrin) 200 mg PO TID PRN PRN Reason: Pain/Fever Last Admin: 03/07/18 01:23 Dose: 200 mg Iopamidol (Isovue-300 (61%)) 50 ml IVPUSH ONETIME ONE Stop: 03/07/18 09:35 Last Admin: 03/07/18 09:43 Dose: 50 ml Iopamidol (Isovue-300 (61%)) 100 ml IVPUSH ONETIME ONE Stop: 03/09/18 08:38 Last Admin: 03/09/18 09:41 Dose: 100 ml Nystatin (Nystatin Crm) 0 gm TOP TID [facility] Last Admin: 03/13/18 08:50 Dose: 1 applic Nystatin (Nystop) 0 gm TOP QID [facility] Last Admin: 03/14/18 09:55 Dose: 1 applic Ondansetron HCl (Zofran Odt) 4 mg PO Q4H PRN PRN Reason: nausea, able to take PO Last Admin: 03/12/18 09:04 Dose: 4 mg Oxycodone/Acetaminophen (Percocet 325-5 Mg) 1 tab PO Q4H PRN PRN Reason: Pain (moderate 4-6) Potassium Chloride (Klor-Con 10) 20 meq PO ONETIME ONE Stop: 03/08/18 17:29 Last Admin: 03/08/18 17:42 Dose: 20 meq Sodium Chloride (Saline Flush) 10 ml FLUSH ASDIRECTED PRN PRN Reason: Keep Vein Open Last Admin: 03/14/18 06:02 Dose: 10 ml Sodium Chloride (Saline Flush) 10 ml FLUSH DAILY [facility] Last Admin: 03/14/18 08:06 Dose: 10 ml Sodium Chloride (Sodium Chloride) 1 gm PO DAILY [facility] Last Admin: 03/10/18 08:53 Dose: 1 gm Sodium Chloride (Sodium Chloride) 1 gm PO TID [facility] Last Admin: 03/12/18 09:04 Dose: 1 gm - Exam Quality Assessment: Reports: DVT Prophylaxis General: Reports: Alert, Oriented HEENT: Reports: Pupils Equal, Pupils Reactive, EOMI, Mucous Membr. Moist/[place]: Reports: Supple Lungs: Reports: Clear to Auscultation, Normal Respiratory Effort Cardiovascular: Reports: Regular Rate, Regular Rhythm GI/Abdominal Exam: Normal Bowel Sounds, Soft, Non-Tender, No Organomegaly, No Distention, No Abnormal Bruit, No Mass, Pelvis Stable (Female) Exam: Normal External Exam, Normal Speculum Exam, Normal Bimanual Exam Rectal (Female) Exam: Normal Exam, Normal Rectal Tone Back Exam: Reports: Normal Inspection, Full Range of Motion Extremities: Normal Inspection, Normal Range of Motion, Non-Tender, No Pedal Edema, Normal Capillary Refill Skin: Reports: Warm, Dry, Intact Wound/Incisions: Reports: Healing Well Neurological: Reports: No New Focal Deficit Psy/Mental Status: Reports: Alert, Normal Affect, Normal Mood
== END 2018-03-14 10:43 | disposition swing bed (61) | DRG 871 ==
LOC: DL.ED 01:54 → UNDOADMIN 03:26 → DL.MS 03:26
PROVIDERS: ADMIT Internal Medicine; ATTEND Internal Medicine
DX: A41.9 Sepsis, unspecified organism (principal); J18.9 Pneumonia, unspecified organism; G93.41 Metabolic encephalopathy; E87.1 Hypo-osmolality and hyponatremia; J90 Pleural effusion, not elsewhere classified; K81.0 Acute cholecystitis; E87.8 Other disorders of electrolyte and fluid balance, not elsewhere classified; I10 Essential (primary) hypertension; E83.39 Other disorders of phosphorus metabolism; D32.0 Benign neoplasm of cerebral meninges; E86.0 Dehydration; Z79.82 Long term (current) use of aspirin; Z79.899 Other long term (current) drug therapy
CPT/HCPCS: 36415; 71045; 80053; 83605; 85025; 87040; 93005; 93010; 99284; 99285; A9270; 51702; 70470; 71260; 74177; 80048; 81001; 82140; 83735; 83880; 84100; 85027; 94010; 97116-GP; 97162-GP; 97166-GO; 97530-GO; 97530-GP; 97535-GO; J0456; J0696; J1650; J1940; J2543; J3480; J7030; J7050; Q9967